=== PATIENT | female | born 1990 | race American Indian/Alaskan Native ===

== ENCOUNTER 2017-07-07 18:47 | Emergency (ER) | payer MEDICAID ==
[2017-07-07 19:01] VITALS: PULSE 78; RESP 16; TEMP 98.6; O2SAT 99
--- NOTE | 2017-07-07 19:19 | ED PDOC ---
Arrival/HPI - General Chief Complaint: Female Genitourinary Time Seen by Provider: 07/07/17 19:03 Historian: Patient - History of Present Illness Narrative History of Present Illness (Text): 07/07/17 19:10 Pt is a 26 yr old female, A2, with no past medical history who presents to the ED for a missed menstrual cycle x 3-4 days. LMP was June 04. States she did 3 home tests that were negative. She has associated breast tenderness and clear vaginal discharge for the past 3 days. Reports a recent URI infection that she is now recovering from. Denies chest pain, shortness of breath, headache, nausea, vomiting, diarrhea, vaginal bleeding, GIB, or any other complaints Past Medical History - Provider Review Nursing Documentation Reviewed: Yes - Travel History Have you recently traveled outside [place] w/in the past 3 mons?: No - Cardiac Hx Cardiac Disorders: No - Pulmonary Hx Respiratory Disorders: Yes Hx Asthma: Yes - Neurological Hx Neurological Disorder: No - HEENT Hx HEENT Disorder: No - Renal Hx Renal Disorder: No - Endocrine/Metabolic Hx Endocrine Disorders: No - Hematological/Oncological Hx Blood Disorders: No - Integumentary Hx Dermatological Disorder: No - Musculoskeletal/Rheumatological Hx Musculoskeletal Disorders: No - Gastrointestinal Hx Gastrointestinal Disorders: No - Genitourinary/Gynecological Hx Genitourinary Disorders: No - Psychiatric Hx Psychophysiologic Disorder: No Hx Substance Use: No Family/Social History - Physician Review Nursing Documentation Reviewed: Yes Family/Social History: Unknown Family HX Smoking Status: Never Smoked Hx Alcohol Use: Yes Frequency of alcohol use: Socially Hx Substance Use: No Allergies/Home Meds Allergies/Adverse Reactions: Allergies No Known Allergies Allergy (Verified 07/07/17 18:51) Home Medications: Home Meds Medication Instructions Recorded Confirmed No Known Home Med 07/07/17 07/07/17 Review of Systems - Review of Systems Constitutional: Normal Eyes: Normal ENT: Normal Respiratory: Normal Cardiovascular: Normal Gastrointestinal: Normal Genitourinary Female: Normal Musculoskeletal: Normal Skin: Normal Neurological: Normal Endocrine: Normal Hemo/Lymphatic: Normal Psychiatric: Normal Physical Exam Vital Signs Reviewed: Yes Vital Signs Temp Pulse Resp BP Pulse Ox 07/07/17 18:52 98.6 F 78 16 112/75 99 Temperature: Afebrile Blood Pressure: Normal Pulse: Regular Respiratory Rate: Normal Appearance: Positive for: Well-Appearing, Non-Toxic, Comfortable Pain Distress: None Mental Status: Positive for: Alert and Oriented X 3 - Systems Exam Head: Present: Atraumatic, Normocephalic Pupils: Present: PERRL Extroacular Muscles: Present: EOMI Conjunctiva: Present: Normal Mouth: Present: Moist Mucous Membranes Neck: Present: Normal Range of Motion Respiratory/Chest: Present: Clear to Auscultation, Good Air Exchange. No: Respiratory Distress, Accessory Muscle Use Cardiovascular: Present: Regular Rate and Rhythm, Normal S1, S2. No: Murmurs Abdomen: No: Tenderness, Distention, Peritoneal Signs Breast/Axillary: Present: Tender to Palpation Back: Present: Normal Inspection Upper Extremity: Present: Normal Inspection. No: Cyanosis, Edema Lower Extremity: Present: Normal Inspection. No: Edema Neurological: Present: GCS=15, CN II-XII Intact, Speech Normal Skin: Present: Warm, Dry, Normal Color. No: Rashes Psychiatric: Present: Alert, Oriented x 3, Normal Insight, Normal Concentration Medical Decision Making ED Course and Treatment: 07/07/17 19:19 Impression Pt is a 26 yr old female, A2, with no past medical history who presents to the ED for a missed menstrual cycle x 3-4 days. Plan Beta hCG and UA Assess and Dispo 07/07/17 20:51 Beta hCG 2.39 and advised pt to get retested in about a week and f/u with MECHANIST UA unremarkable - Lab Interpretations Lab Results: Lab Results 07/07/17 19:55: Beta HCG, Quant < 2.39 07/07/17 19:21: Urine Color Yellow, Urine Appearance Clear, Urine pH 7.0, Ur Specific [place] 1.015, Urine Protein Negative, Urine Glucose (UA) Negative, Urine Ketones Negative, Urine Blood Negative, Urine Nitrate Negative, Urine Bilirubin Negative, Urine Urobilinogen 1.0 H, Ur Leukocyte Esterase Negative Disposition/Present on Arrival - Present on Arrival Any Indicators Present on Arrival: Yes History of DVT/PE: No History of Uncontrolled Diabetes: No Urinary Catheter: No History of Decub. Ulcer: No History Surgical Site Infection Following: None - Disposition Have Diagnosis and Disposition been Completed?: Yes Diagnosis: Menses, irregular Disposition: HOME/ ROUTINE Disposition Time: 20:48 Patient Plan: Discharge Condition: GOOD Discharge Instructions (ExitCare): Absent or Irregular Periods Additional Instructions: Kalira, thank you for letting us take care of you today. Your provider was SATHISH Mulatni. You were treated for Possible . The emergency medical care you received today was directed at your acute symptoms. If you were prescribed any medication, please fill it and take as directed. It may take several days for your symptoms to resolve. Return to the Emergency Department if your symptoms worsen, do not improve, or if you have any other problems. Please see your MECHANIST to be retested and follow up care Please contact your doctor or call one of the physicians/clinics you have been referred to that are listed on the Patient Visit Information form that is included in your discharge packet. Bring any paperwork you were given at discharge with you along with any medications you are taking to your follow up visit. Our treatment cannot replace ongoing medical care by a primary care provider (PCP) outside of the emergency department. Thank you for allowing the [facility] team to be part of your care today. Referrals: Shabnam Rosenberg MD [Primary Care Provider] - Follow up with primary Forms: [employer] ([place])
[2017-07-07 19:29] LABS: URINE BILIRUBIN NEGATIVE (NEGATIVE); URINE BLOOD NEGATIVE (NEGATIVE); URINE GLUCOSE (UA) NEGATIVE (NEGATIVE); URINE LEUKOCYTE ESTERASE NEGATIVE Leu/uL (NEGATIVE); URINE PROTEIN NEGATIVE mg/dL (<30 mg/dL)
[2017-07-07 19:31] LABS: URINE APPEARANCE CLEAR (CLEAR); URINE COLOR YELLOW (YELLOW)
[2017-07-07 20:59] VITALS: BP 120/79
== END 2017-07-07 20:54 | disposition home or self-care (01) ==
LOC: MERGE 18:47 → ED 18:47
DX: N92.6 Irregular menstruation, unspecified (principal)

== ENCOUNTER 2017-10-01 18:37 | Emergency (ER) | payer SELFPAY ==
[2017-10-01] MEDS ORDERED: cefTRIAXone (Rocephin) 250 mg Inj IM STA (20:06)
[2017-10-01 20:08] VITALS: TEMP 99; O2SAT 99
--- NOTE | 2017-10-01 20:11 | ED PDOC ---
Arrival/HPI - General Historian: Patient - History of Present Illness Time/Duration: 24 hours Symptom Onset: Gradual Symptom Course: Unchanged - General Chief Complaint: Female Genitourinary Time Seen by Provider: 10/01/17 19:34 - History of Present Illness Narrative History of Present Illness (Text): 10/01/17 20:08 Patient is a 27 year old female with PMH of asthma who presents to ED requesting testing for gonorrhea. She states her partner tested positive yesterday and she requests testing for gonorrhea and chlamydia at this time. She reports some vaginal discharge but denies vaginal bleeding, dysuria, hematuria, flank pain, nausea/vomiting, fever, or chills. (Mehdi Linton) Past Medical History - Provider Review Nursing Documentation Reviewed: Yes - Travel History Have you recently traveled outside [place] w/in the past 3 mons?: No - Cardiac Hx Cardiac Disorders: No - Pulmonary Hx Respiratory Disorders: Yes Hx Asthma: Yes - Neurological Hx Neurological Disorder: No - HEENT Hx HEENT Disorder: No - Renal Hx Renal Disorder: No - Endocrine/Metabolic Hx Endocrine Disorders: No - Hematological/Oncological Hx Blood Disorders: No - Integumentary Hx Dermatological Disorder: No - Musculoskeletal/Rheumatological Hx Musculoskeletal Disorders: No - Gastrointestinal Hx Gastrointestinal Disorders: No - Genitourinary/Gynecological Hx Genitourinary Disorders: No - Psychiatric Hx Psychophysiologic Disorder: No Hx Substance Use: No Family/Social History - Physician Review Nursing Documentation Reviewed: Yes Family/Social History: No Known Family HX Smoking Status: Never Smoked Hx Alcohol Use: Yes Hx Substance Use: No Allergies/Home Meds Allergies/Adverse Reactions: Allergies No Known Allergies Allergy (Verified 07/07/17 18:51) Home Medications: Home Meds Medication Instructions Recorded Confirmed No Known Home Med 07/07/17 10/01/17 Review of Systems - Physician Review All systems were reviewed & negative as marked: Yes - Review of Systems Constitutional: absent: Fatigue, Fevers Eyes: absent: Vision Changes ENT: absent: Sore Throat, Rhinorrhea Respiratory: absent: SOB, Cough Cardiovascular: absent: Chest Pain, Edema Gastrointestinal: Abdominal Pain, Diarrhea. absent: Nausea, Vomiting Genitourinary Female: Vaginal Discharge. absent: Dysuria, Frequency, Hematuria , Urine Output Changes, Vaginal Bleeding Musculoskeletal: absent: Arthralgias Skin: absent: Rash, Pruritis Neurological: absent: Headache, Dizziness Endocrine: absent: Diaphoresis Psychiatric: absent: Anxiety, Depression Physical Exam Vital Signs Reviewed: Yes Temperature: Afebrile Blood Pressure: Normal Pulse: Regular Respiratory Rate: Normal Appearance: Positive for: Well-Appearing, Non-Toxic, Comfortable Pain Distress: None Mental Status: Positive for: Alert and Oriented X 3 - Systems Exam Head: Present: Atraumatic, Normocephalic Pupils: Present: PERRL Extroacular Muscles: Present: EOMI Conjunctiva: Present: Normal Ears: Present: Normal Mouth: Present: Moist Mucous Membranes Pharnyx: Present: Normal. No: ERYTHEMA, EXUDATE Nose (External): Present: Atraumatic Neck: Present: Normal Range of Motion. No: JVD Respiratory/Chest: Present: Clear to Auscultation. No: Wheezes, Rales, Rhonchi Cardiovascular: Present: Regular Rate and Rhythm, Normal S1, S2. No: Murmurs, Rub, Gallop Abdomen: Present: Normal Bowel Sounds. No: Tenderness, Rebound, Guarding, [place] Tender Genitourinary/Pelvic Exam: Present: Other (patient refused pelvic exam, states she would rather receive the treatment alone) Upper Extremity: Present: Normal Inspection. No: Cyanosis Lower Extremity: Present: Normal Inspection. No: Edema Neurological: Present: Speech Normal Skin: Present: Warm, Dry Psychiatric: Present: Alert, Oriented x 3 Vital Signs Temp Pulse Resp BP Pulse Ox 10/01/17 19:30 99 F 69 18 131/84 99 Medical Decision Making ED Course and Treatment: 10/01/17 20:12 -Will empirically treat for gonorrhea/chlamydia with 250 mg Rocephin IM and 1 g azithromycin PO -Will send urine for POC , gonorrhea, chlamydia 10/01/17 21:05 - test negative, will discharge after treatment (Mehdi Linton) Patient Seen With Resident: In agreement with resident note. Patient was seen and evaluated with resident, came up with plan and treatment together. h/ o of partner std. pt given std treatment. pt specifically requests for testing,even though treatment provided. ucg neg. initially consents to pelvic exam, later refuses. 10/01/17 21:46 (Feliciano Mark) - Lab Interpretations Lab Results: Lab Results 10/01/17 20:39: Urine HCG, Qual Negative - Medication Orders Current Medication Orders: Discontinued Medications Azithromycin (Zithromax) 1,000 mg PO STAT STA PRN Reason: Protocol Stop: 10/01/17 20:08 Last Admin: 10/01/17 21:30 Dose: 1,000 mg Ceftriaxone Sodium (Rocephin) 250 mg IM STAT STA PRN Reason: Protocol Stop: 10/01/17 20:07 Last Admin: 10/01/17 21:30 Dose: 250 mg IM Administration Charges Document 10/01/17 21:30 RD (Rec: 10/01/17 21:32 RD [id number]) Injection Site MAR Injection Site Left Gluteus Fidencio Charges for Administration # of IM Administrations 1 Disposition/Present on Arrival - Present on Arrival Any Indicators Present on Arrival: No History of DVT/PE: No History of Uncontrolled Diabetes: No Urinary Catheter: No History of Decub. Ulcer: No History Surgical Site Infection Following: None - Disposition Have Diagnosis and Disposition been Completed?: Yes Disposition Time: 21:06 Patient Plan: Discharge - Disposition Diagnosis: Gonorrhea, Sexually transmitted disease (STD) Disposition: HOME/ ROUTINE Patient Problems: Current Active Problems Problem Status Onset Gonorrhea Acute Sexually transmitted disease (STD) Acute Condition: GOOD Discharge Instructions (ExitCare): Chlamydia and Gonorrhea, Sexually- Transmitted Diseases (DC) Forms: [place] ([place])
[2017-10-02 00:50] VITALS: BP 125/70; PULSE 65; RESP 17
== END 2017-10-01 21:35 | disposition home or self-care (01) ==
LOC: ED 18:37
DX: A54.9 Gonococcal infection, unspecified (principal)
CPT/HCPCS: 84703; 87491; 87591; 96372; 99283; J0696